=== PATIENT | female | born 1985 | race Caucasian/White ===

== ENCOUNTER 2017-09-27 07:40 | Day surgery (SDC) | payer OTHER ==
[~2017-09-27] VITALS: Ht 172.7 cm; Wt 57.2 kg
[~2017-09-27 07:40] MED LIST: ACET325; ACET500; ALBU90OI INH; AMOX500 PO; AZIT250 PO; Amoxicillin500 MG PO; BISA5EC PO; CEFA500 PO; CIPR500 PO; CRUTCH4 USE; CYCL10 PO; Cipro500 MG PO; DOXY100 PO; Flagyl500 MG PO; HYDACE5 PO; HYDGUAL120 PO; INTE30I SC; MAGCHL64ER PO; MAGCIT300 PO; METR500 PO; MULVITMIND PO; MULVITMINE; NEOPOLHCSU AS; Norco 5-325 Ta1 EACH PO; ONDA4ODT MM; OXYACE5T PO; Omeprazole20 M1 PO; POTCHL20ER PO; PRED20 PO; PROM25 PO; Percocet 5-3251 EACH PO; RXHYDACE PO; RXPROM25 PO
[2017-09-27] MEDS ORDERED: ESOM20 (08:10)
== END 2017-09-27 09:30 | disposition home or self-care (01) ==
LOC: ORSCSDS 07:40
PROVIDERS: Internal Medicine Gastroenterology
PROC: 0DB68ZX Excision of Stomach, Via Natural or Artificial Opening Endoscopic, Diagnostic (ICD-10-PCS; principal; 2017-09-27 08:45)
DX: R10.13 Epigastric pain (principal); R63.4 Abnormal weight loss; K20.9 Esophagitis, unspecified; R11.2 Nausea with vomiting, unspecified; Z87.891 Personal history of nicotine dependence; K29.70 Gastritis, unspecified, without bleeding; K21.9 Gastro-esophageal reflux disease without esophagitis; Z79.899 Other long term (current) drug therapy
CPT/HCPCS: 88305; 88342; J7120

== ENCOUNTER → 2017-10-21 | Outpatient (CLI) | payer OTHER ==
[~2017-10-21] MED LIST changes: +ASCO500 PO; +AUBAGIO14 MG PO; +ESOM20; +Omeprazole20 M1; +Once Daily1 EACH PO; +VITAMIN D5000 UNI1 PO
== END | disposition home or self-care (01) ==
LOC: LAB EV 09:45
DX: J03.90 Acute tonsillitis, unspecified (principal)
CPT/HCPCS: 87070

== ENCOUNTER 2017-11-05 08:38 | Emergency (ER) | END 2017-11-05 09:10 | disposition left against medical advice (07) ==

== ENCOUNTER → 2017-11-05 | Outpatient (CLI) | payer OTHER ==
[~2017-11-05] MED LIST changes: -AUBAGIO14 MG PO
== END ==
LOC: LAB SHORT 09:47 → LAB EV 09:47
DX: J02.9 Acute pharyngitis, unspecified (principal)
CPT/HCPCS: 87070

== ENCOUNTER 2017-11-14 17:28 | Emergency (ER) | payer OTHER ==
[~2017-11-14] VITALS: Ht 172.7 cm; Wt 59.0 kg
[~2017-11-14 17:28] MED LIST changes: -ASCO500 PO; -Omeprazole20 M1; -Once Daily1 EACH PO; -VITAMIN D5000 UNI1 PO
[2017-11-14 18:08] LABS: BASOPHILS ABSOLUTE AUTO 0.04 K/mm3 (0.00-0.23); BASOPHILS PERCENT AUTO 1 % (0-2); EOSINOPHILS ABSOLUTE AUTO 0.19 K/mm3 (0.00-0.68); EOSINOPHILS PERCENT AUTO 2 % (0-6); Hematocrit 39.4 % (33.0-51.0); Hemoglobin 13.1 g/dL (11.5-16.0); IMMATURE GRAN ABSOLUTE AUTO 0.02 K/mm3 (0.00-0.10); IMMATURE GRAN PERCENT AUTO 0 % (0-1); LYMPHOCYTES ABSOLUTE AUTO 2.93 K/mm3 (0.84-5.20); LYMPHOCYTES PERCENT AUTO 34 % (21-46); MONOCYTES ABSOLUTE AUTO 0.65 K/mm3 (0.16-1.47); MONOCYTES PERCENT AUTO 8 % (4-13); Mean Corpuscular HGB 31.9 pg (26.0-34.0); Mean Corpuscular HGB Conc 33.2 g/dL (31.5-36.5); Mean Corpuscular Volume 96 fL (80-100); Mean Platelet Volume 10.7 fL (9.1-12.4); NEUTROPHILS ABSOLUTE AUTO 4.74 K/mm3 (1.96-9.15); NEUTROPHILS PERCENT AUTO 55 % (41-73); Platelet Count 349 K/mm3 (150-400); RDW Standard Deviation 42.4 fL (35.1-46.3); Red Blood Cell Count 4.11 M/mm3 (3.80-5.20); White Blood Cell Count 8.57 K/mm3 (4.00-11.30)
[2017-11-14 18:31] LABS: International Normalized Ratio 1.07; Prothrombin Time Results 11.1 Sec (9.7-11.5)
[2017-11-14 18:33] LABS: Alanine Aminotransfer (ALT/SGP 16 U/L (12-78); Albumin, Blood 4.6 g/dL (3.4-5.0); Albumin/Globulin Ratio 1.3 (0.8-1.8); Alk Phos 75 U/L (50-136); Anion Gap 6 mmol/L (6-16); Aspartate Aminotrans (AST/SGOT 21 U/L (12-37); Bilirubin, Total 0.7 mg/dL (0.1-1.0); Blood Urea Nitrogen 13 mg/dL (8-24); CO2, Blood 30 mmol/L (21-32); Calcium, Blood 9.4 mg/dL (8.5-10.1); Chloride, Blood 107 mmol/L (98-108); Creatinine, Blood 0.87 mg/dL (0.40-1.00); Globulin, Blood 3.5 g/dL (2.2-4.0); Glomerular Filtration Rate >60 (60-); Glucose, Blood 82 mg/dL (70-99); Potassium, Blood 3.6 mmol/L (3.5-5.5); Sodium, Blood 143 mmol/L (136-145); Total Protein, Blood 8.1 g/dL (6.4-8.2)
[2017-11-15] MEDS ORDERED: ASCO500 PO (16:30)
[2017-11-15] MEDS ORDERED: Once Daily1 EACH PO (16:30)
[2017-11-15] MEDS ORDERED: VITAMIN D5000 UNI1 PO (16:31)
== END 2017-11-14 23:01 | disposition home or self-care (01) ==
LOC: ER 17:28
PROVIDERS: Physician Assistant
DX: G35 Multiple sclerosis (principal); G43.909 Migraine, unspecified, not intractable, without status migrainosus; Z88.5 Allergy status to narcotic agent; Z88.8 Allergy status to other drugs, medicaments and biological substances; Z87.891 Personal history of nicotine dependence
CPT/HCPCS: 36415; 70450; 80053; 85025; 85610; 93005; 93010; 96365; 96375; 99284; J1200; J1885; J2765; J2930; J7030

== ENCOUNTER 2017-11-15 16:03 | Day surgery (SDC) | payer OTHER ==
[2017-11-15] MEDS ORDERED: ASCO500 PO (16:30)
[2017-11-15] MEDS ORDERED: Once Daily1 EACH PO (16:30)
[2017-11-15] MEDS ORDERED: VITAMIN D5000 UNI1 PO (16:31)
== END 2017-11-15 16:50 | disposition home or self-care (01) ==
LOC: ATC 16:03
DX: G35 Multiple sclerosis (principal); Z87.891 Personal history of nicotine dependence
CPT/HCPCS: 96365; J2930

== ENCOUNTER 2017-11-16 10:29 | Day surgery (SDC) | payer OTHER ==
[~2017-11-16 10:29] MED LIST changes: +ASCO500 PO; +Once Daily1 EACH PO; +VITAMIN D5000 UNI1 PO
== END 2017-11-16 17:05 | disposition home or self-care (01) ==
LOC: ATC 10:29
DX: G35 Multiple sclerosis (principal); Z87.891 Personal history of nicotine dependence
CPT/HCPCS: 96365; J2930

== ENCOUNTER 2017-11-17 01:06 | Day surgery (SDC) | payer OTHER | END 2017-11-17 17:30 | disposition home or self-care (01) | LOC: ATC 01:06 | DX: G35 Multiple sclerosis (principal) | CPT/HCPCS: 96365; 96375; J1200; J1885; J2405; J2930 ==

== ENCOUNTER 2017-11-18 01:13 | Day surgery (SDC) | payer OTHER | END 2017-11-18 16:45 | disposition home or self-care (01) | LOC: ATC 01:13 | DX: G35 Multiple sclerosis (principal); Z87.891 Personal history of nicotine dependence | CPT/HCPCS: 96365; J2930 ==

== ENCOUNTER 2017-11-19 01:38 | Day surgery (SDC) | payer OTHER | END 2017-11-19 16:52 | disposition home or self-care (01) | LOC: ATC 01:38 | DX: G35 Multiple sclerosis (principal); Z87.891 Personal history of nicotine dependence | CPT/HCPCS: 96365; J2930 ==

== ENCOUNTER 2017-11-20 01:13 | Day surgery (SDC) | payer OTHER | END 2017-11-20 17:59 | disposition home or self-care (01) | LOC: ATC 01:13 | DX: G43.101 Migraine with aura, not intractable, with status migrainosus (principal); G35 Multiple sclerosis; Z88.5 Allergy status to narcotic agent | CPT/HCPCS: 96361; 96365; 96375; J1200; J7030 ==

== ENCOUNTER 2017-11-21 00:14 | Day surgery (SDC) | payer OTHER ==
[2017-11-22] MEDS ORDERED: Omeprazole20 M1 (19:40)
== END 2017-11-21 22:38 | disposition home or self-care (01) ==
LOC: ATC 00:14
DX: G35 Multiple sclerosis (principal); G43.101 Migraine with aura, not intractable, with status migrainosus; Z87.891 Personal history of nicotine dependence
CPT/HCPCS: J2930

== ENCOUNTER 2017-11-22 18:08 | Emergency (ER) | payer OTHER ==
[~2017-11-22] VITALS: Ht 170.2 cm; Wt 106.6 kg
[2017-11-22] MEDS ORDERED: Omeprazole20 M1 (19:40)
== END 2017-11-22 19:54 | disposition left against medical advice (07) ==
LOC: ER 18:08
DX: Z53.21 Procedure and treatment not carried out due to patient leaving prior to being seen by health care provider (principal)

== ENCOUNTER 2018-01-01 08:56 | Day surgery (SDC) | payer OTHER ==
[~2018-01-01] VITALS: Ht 172.7 cm; Wt 57.8 kg
[~2018-01-01 08:56] MED LIST changes: +Omeprazole20 M1
== END 2018-01-01 11:27 | disposition home or self-care (01) ==
LOC: ORSCSDS 08:56
PROVIDERS: Otolaryngology
PROC: 0CBPXZZ Excision of Tonsils, External Approach (ICD-10-PCS; principal; 2018-01-01 10:45)
DX: R13.19 Other dysphagia (principal); J35.01 Chronic tonsillitis; G35 Multiple sclerosis; Z79.899 Other long term (current) drug therapy; Z87.891 Personal history of nicotine dependence
CPT/HCPCS: 88304; J1100; J2250; J3010; J7120

== ENCOUNTER 2018-02-12 21:56 | Emergency (ER) | payer OTHER ==
[~2018-02-12] VITALS: Ht 167.6 cm; Wt 72.6 kg
== END 2018-02-12 23:00 | disposition home or self-care (01) ==
LOC: ER 21:56
DX: S01.01XA Laceration without foreign body of scalp, initial encounter (principal); S60.012A Contusion of left thumb without damage to nail, initial encounter; Z88.5 Allergy status to narcotic agent; Z88.8 Allergy status to other drugs, medicaments and biological substances; Z87.891 Personal history of nicotine dependence; W22.8XXA Striking against or struck by other objects, initial encounter; Y92.89 Other specified places as the place of occurrence of the external cause
CPT/HCPCS: 12002; 99282

== ENCOUNTER → 2018-04-18 | Outpatient (CLI) | payer OTHER ==
[2018-04-18 07:29] LABS: Adenovirus F 40/41 Not Detected (NOT DETECT); Astrovirus Not Detected (NOT DETECT); Campylobacter Sp Not Detected (NOT DETECT); Cryptosporidium Not Detected (NOT DETECT); Cyclospora Cayetanensis Not Detected (NOT DETECT); E. Coli O157 Not Detected (NOT DETECT); Entamoeba Histolytica Not Detected (NOT DETECT); Enteroaggregative E. coli-EAEC Not Detected (NOT DETECT); Enteropathogenic E. coli-EPEC Not Detected (NOT DETECT); Enterotoxigenic E. coli-ETEC Not Detected (NOT DETECT); Giardia Lamblia Not Detected (NOT DETECT); Norovirus GI/GII Not Detected (NOT DETECT); Plesiomonas Shigelloides Not Detected (NOT DETECT); Rotavirus A Not Detected (NOT DETECT); Salmonella Sp Not Detected (NOT DETECT); Sapovirus Not Detected (NOT DETECT); Shiga Toxin-prod E. coli-STEC Not Detected (NOT DETECT); Shigella/Enteroin E. coli-EIEC Not Detected (NOT DETECT); Vibrio Cholerae Not Detected (NOT DETECT); Vibrio Sp Not Detected (NOT DETECT); Yersinia Enterocolitica Not Detected (NOT DETECT)
== END | disposition home or self-care (01) ==
LOC: LAB SHORT 07:27 → LAB 07:27
PROVIDERS: Internal Medicine Gastroenterology
DX: R11.2 Nausea with vomiting, unspecified (principal); R10.13 Epigastric pain
CPT/HCPCS: 87507

== ENCOUNTER 2018-05-07 11:29 | Emergency (ER) | payer OTHER ==
[~2018-05-07] VITALS: Ht 170.2 cm; Wt 54.4 kg
[2018-05-07] MEDS ORDERED: Omeprazole20 M1 PO (13:34)
[2018-05-07] MEDS ORDERED: AUBAGIO14 MG PO (13:35)
[2018-05-07 14:09] LABS: BASOPHILS ABSOLUTE AUTO 0.03 K/mm3 (0.00-0.23); BASOPHILS PERCENT AUTO 1 % (0-2); EOSINOPHILS ABSOLUTE AUTO 0.28 K/mm3 (0.00-0.68); EOSINOPHILS PERCENT AUTO 5 % (0-6); Hematocrit 39.9 % (33.0-51.0); IMMATURE GRAN ABSOLUTE AUTO 0.02 K/mm3 (0.00-0.10); IMMATURE GRAN PERCENT AUTO 0 % (0-1); LYMPHOCYTES ABSOLUTE AUTO 1.88 K/mm3 (0.84-5.20); LYMPHOCYTES PERCENT AUTO 31 % (21-46); MONOCYTES ABSOLUTE AUTO 0.54 K/mm3 (0.16-1.47); MONOCYTES PERCENT AUTO 9 % (4-13); Mean Corpuscular HGB Conc 32.6 g/dL (31.5-36.5); Mean Corpuscular Volume 98 fL (80-100); Mean Platelet Volume 12.5 fL (9.1-12.4); NEUTROPHILS ABSOLUTE AUTO 3.28 K/mm3 (1.96-9.15); NEUTROPHILS PERCENT AUTO 54 % (41-73); Platelet Count 203 K/mm3 (150-400); RDW Standard Deviation 47.4 fL (35.1-46.3); Red Blood Cell Count 4.06 M/mm3 (3.80-5.20); White Blood Cell Count 6.03 K/mm3 (4.00-11.30)
[2018-05-07 14:15] LABS: Alanine Aminotransfer (ALT/SGP 25 U/L (12-78); Albumin, Blood 4.4 g/dL (3.4-5.0); Albumin/Globulin Ratio 1.3 (0.8-1.8); Alk Phos 54 U/L (50-136); Anion Gap 6 mmol/L (6-16); Aspartate Aminotrans (AST/SGOT 19 U/L (12-37); Bilirubin, Total 0.6 mg/dL (0.1-1.0); Blood Urea Nitrogen 15 mg/dL (8-24); Bun/Creatinine Ratio 16.6 (12.0-20.0); CO2, Blood 26 mmol/L (21-32); Calcium, Blood 9.3 mg/dL (8.5-10.1); Chloride, Blood 107 mmol/L (98-108); Globulin, Blood 3.5 g/dL (2.2-4.0); Glomerular Filtration Rate >60 (60-); Glucose, Blood 90 mg/dL (70-99); Potassium, Blood 3.7 mmol/L (3.5-5.5); Sodium, Blood 139 mmol/L (136-145); Total Protein, Blood 7.9 g/dL (6.4-8.2)
== END 2018-05-07 16:15 | disposition home or self-care (01) ==
LOC: ER 11:29
PROVIDERS: Physician Assistant
DX: R10.11 Right upper quadrant pain (principal); R10.13 Epigastric pain; Z88.5 Allergy status to narcotic agent; Z88.8 Allergy status to other drugs, medicaments and biological substances; Z79.899 Other long term (current) drug therapy; Z87.891 Personal history of nicotine dependence
CPT/HCPCS: 36415; 76705; 80053; 83690; 85025; 99284-25

== ENCOUNTER 2018-06-02 17:08 | Emergency (ER) | payer OTHER ==
[~2018-06-02] VITALS: Ht 170.2 cm; Wt 54.4 kg
[~2018-06-02 17:08] MED LIST changes: +AUBAGIO14 MG PO
[2018-06-02] MEDS ORDERED: Norco 5-325 Ta1 EACH PO (17:41)
== END 2018-06-02 17:53 | disposition home or self-care (01) ==
LOC: ER 17:08
DX: S39.92XA Unspecified injury of lower back, initial encounter (principal); Z88.5 Allergy status to narcotic agent; Z88.8 Allergy status to other drugs, medicaments and biological substances; Z79.899 Other long term (current) drug therapy; Z87.891 Personal history of nicotine dependence; W10.9XXA Fall (on) (from) unspecified stairs and steps, initial encounter
CPT/HCPCS: 99282

== ENCOUNTER 2021-04-30 05:33 | Emergency (ER) | payer OTHER ==
[~2021-04-30] VITALS: Ht 170.2 cm; Wt 56.7 kg
== END 2021-04-30 07:00 | disposition home or self-care (01) ==
LOC: ER 05:33
DX: U07.1 COVID-19 (principal); Z87.891 Personal history of nicotine dependence
CPT/HCPCS: 99284

== ENCOUNTER → 2021-05-10 | Outpatient (CLI) | payer OTHER ==
[2021-05-12 18:03] LABS: CORONAVIRUS (COVID19) CSH-NRL Negative (Negative)
== END ==
LOC: LAB 13:27 → LAB SHORT 13:27
PROVIDERS: Physician Assistant Medical
DX: Z01.812 Encounter for preprocedural laboratory examination (principal); Z20.822 Contact with and (suspected) exposure to COVID-19
CPT/HCPCS: U0003

== ENCOUNTER 2021-07-21 08:52 | Emergency (ER) | payer OTHER ==
[~2021-07-21] VITALS: Ht 170.2 cm; Wt 61.2 kg
== END 2021-07-21 10:07 | disposition home or self-care (01) ==
LOC: ER 08:52
DX: S61.412A Laceration without foreign body of left hand, initial encounter (principal); S61.411A Laceration without foreign body of right hand, initial encounter; Z23 Encounter for immunization; Z88.5 Allergy status to narcotic agent; Z88.8 Allergy status to other drugs, medicaments and biological substances; W19.XXXA Unspecified fall, initial encounter
CPT/HCPCS: 90471; 90714; 99283-25

== ENCOUNTER 2021-08-28 10:38 | Emergency (ER) | payer OTHER ==
[~2021-08-28] VITALS: Ht 170.2 cm; Wt 63.5 kg
== END 2021-08-28 12:50 | disposition home or self-care (01) ==
LOC: ER 10:38
DX: S06.9X9A Unspecified intracranial injury with loss of consciousness of unspecified duration, initial encounter (principal); S00.83XA Contusion of other part of head, initial encounter; Z87.891 Personal history of nicotine dependence; Z88.5 Allergy status to narcotic agent; Y04.2XXA Assault by strike against or bumped into by another person, initial encounter
CPT/HCPCS: 70450; 70486; 99285-25; A9270

== ENCOUNTER 2023-03-24 09:54 | Emergency (ER) | payer OTHER ==
[~2023-03-24] VITALS: Ht 170.2 cm; Wt 61.2 kg
[2023-03-24 10:02] VITALS: BP 197/95
[2023-03-24] MEDS ORDERED: Ritalin10 MG PO (10:05)
[2023-03-24] MEDS ORDERED: CYMBALTA30 M2 PO (10:05)
[2023-03-24] MEDS ORDERED: Hydroxyzine HCl25 MG (10:06)
[2023-03-24] MEDS ORDERED: PRED20 PO (11:53)
== END 2023-03-24 12:13 | disposition home or self-care (01) ==
LOC: ER 09:54
DX: G35 Multiple sclerosis (principal); F17.290 Nicotine dependence, other tobacco product, uncomplicated; Z88.5 Allergy status to narcotic agent; Z88.8 Allergy status to other drugs, medicaments and biological substances
CPT/HCPCS: 99283

== ENCOUNTER → 2023-04-07 | Outpatient (CLI) | payer OTHER ==
[~2023-04-07] MED LIST changes: +CYMBALTA30 M2 PO; +Hydroxyzine HCl25 MG; +Ritalin10 MG PO
== END | disposition home or self-care (01) ==
LOC: LAB SHORT 17:30 → LAB 17:30
DX: L02.519 Cutaneous abscess of unspecified hand (principal)
CPT/HCPCS: 87070; 87075; 87077; 87147; 87186; 87205